=== PATIENT | female | born 1960 | race Caucasian/White ===

== ENCOUNTER 2016-08-06 13:57 | Emergency (ER) | payer OTHER ==
[~2016-08-06] VITALS: Ht 152.4 cm; Wt 46.9 kg
[~2016-08-06 13:57] MED LIST: ADDERALL XR 3030 MG PO; ADDERALL20 MG PO; ALPRAZOLAM0.5 MG PO; AMBIEN10 MG PO; ANTI-ANXIETY; ASCORBIC ACID500 M3 PO; ASPIR 8181 M1 PO; ASPIR-LOW81 MG PO; ASPIRIN325 MG PO; AVENTYL,PAMELOR25 MG PO; Aspirin E.C. PO; B COMPLETE1 EACH PO; BACTRIM,SEPT1 TABLET PO; BUSPAR PO; BUSPAR10 MG PO; BUSPAR15 MG PO; BUSPAR5 MG PO; BUSPIRONE HCL10 MG PO; BUSPIRONE HCL15 MG PO; CALCIUM 500 MG1 EACH PO; CEFPODOXIME PR100 MG PO; CEROVITE ADVAN1 EACH PO; CIPRO250 MG PO; CIPROFLOXACIN500 M1 PO; CLINDAMYCIN HC300 MG PO; CLOPIDOGREL75 MG PO; COLACE100 MG PO; CYANOCOBALAM1000 MCG PO; Chronulac,Cephulac,E PO; DAILY VALUE1 EACH PO; DAILY VITE1 EAC1 PO; DECADRON2 MG PO; DEPAKOTE500 MG PO; DESYREL 150 MG150 MG PO; DESYREL100 MG PO; DITROPAN XL10 MG PO; DOCUSATE SODIU100 MG PO; DULOXETINE HCL60 MG PO; EFFEXOR XR150 MG PO; EFFEXOR XR75 MG PO; EFFEXOR75 MG PO; ENDOCET 10-3251 EACH PO; ENDOCET 5-3251 EACH PO; FAMOTIDINE20 MG PO; FISH OIL 1,0001 EAC7 PO; FLONASE16 G1 BOTH NARES; HYDROCODON-ACE1 EAC7 PO; HYDROXYZINE HCL50 MG PO; KLONOPIN0.5 M1; LEVETIRACETAM500 MG PO; LISINOPRIL5 MG PO; LO-DOSE ASPIRIN81 M1 PO; LOPRESSOR25 MG PO; LOVENOX40 MG/0.4 SC; MAG-AL PLUS SUS30 ML PO; MAXALT10 MG PO; MEDROL32 MG PO; METOPROLOL PO; NORTRIPTYLINE H25 MG PO; ONDANSETRON ODT4 MG PO; ONDANSETRON4 MG/2 ML PO; OXYBUTYNIN CHLO10 MG PO; OXYCODONE HCL5 MG PO; OXYCODONE-APAP1 EACH PO; PANTOPRAZOLE SO40 MG PO; PAXIL20 MG PO; PAXIL30 MG PO; PEN-VEE K,VEET500 MG PO; PERCOCET 10/1 TABLET PO; PERCOCET 5/31 TABLET PO; PILOCARPINE HCL5 MG PO; PLAVIX75 MG PO; PRAVACHOL40 MG PO; PRAVASTATIN SOD40 MG PO; PRAVASTATIN SOD80 MG PO; PROMETHAZINE HC25 M1 PO; RESTORIL30 MG PO; SAM-E400 MG PO; SENNA PLUS TAB1 EACH PO; TEMAZEPAM30 MG PO; TOPAMAX25 MG PO; TOPIRAMATE25 MG PO; TORADOL10 MG PO; TRAMADOL HCL50 MG PO; TRAZODONE HCL100 MG PO; TRAZODONE HCL150 MG PO; TRAZODONE HCL50 MG PO; TYLENOL REGULA325 MG PO; Tums,OsCal PO; Tylenol Regular Stre PO; ULTRAM50 MG PO; VENLAFAXINE HCL75 M3 PO; VENLAFAXINE225 MG PO; VITAMIN D31000 UNIT PO; WELLBUTRIN SR100 MG PO; WELLBUTRIN XL150 MG PO; WELLBUTRIN100 MG PO; XANAX0.25 MG PO; Xanax PO; ZOFRAN4 MG PO; ZOLOFT100 MG PO; ZOLPIDEM TARTRA10 MG PO
[2016-08-06 16:58] LABS: EOSINOPHIL COUNT 0.1 K/uL (0-0.3); HEMATOCRIT 40.1 % (36.0-46.0); IMMATURE GRANULOCYTE (%) 0.2 % (0.0-0.7); IMMATURE GRANULOCYTE COUNT 0.1 K/uL; LYMPHOCYTE COUNT 1.9 K/uL (1.0-2.8); MCH 30.8 PG (29.0-34.0); MCHC 33.2 G/DL (30.0-36.0); MCV 92.8 FL (83-99); MONOCYTE (%) 9.1 % (3-12); MONOCYTE COUNT 0.6 K/uL (0-0.8); NEUTROPHIL (%) 56.8 % (45-76); NEUTROPHIL COUNT 3.5 K/uL (1.8-6.4); PLATELET COUNT 298 K/uL (156-360); RBC DIS.WIDTH-CV 13.5 % (11.8-14.6); RBC DIS.WIDTH-SD 44.5 % (39-53); RED BLOOD COUNT 4.32 M/uL (3.80-5.20); WHITE BLOOD COUNT 6.1 K/uL (4.1-10.2)
[2016-08-06 17:09] LABS: CHLORIDE 107 mEq/L (99-109); POTASSIUM 4.8 mEq/L (3.7-5.4); SODIUM 141 mEq/L (136-147)
[2016-08-06 17:11] LABS: GLUCOSE 89 mg/dL (70-99)
[2016-08-06 17:13] LABS: ANION GAP 10 MEQ/L (2-14); TOTAL BILIRUBIN 0.3 mg/dL (0.0-1.0)
[2016-08-06 17:15] LABS: ALKALINE PHOSPHATASE 94 IU/L (3-129); GFR ESTIMATE (CALCULATED) > 59 mL/min/
[2016-08-06 17:16] LABS: UREA NITROGEN (BUN) 23 mg/dL (9-23)
[2016-08-06 17:18] LABS: TROP-I INTERPRETATION NEGATIVE; TROPONIN-I < 0.01 ng/mL (0.0-0.30)
[2016-08-06 21:34] VITALS: BP 110/69
[2016-08-07] MEDS ORDERED: ZOCOR20 MG PO (17:35)
== END 2016-08-06 21:37 | disposition home or self-care (01) ==
LOC: EME 13:57
PROVIDERS: Emergency Medicine
DX: R53.1 Weakness (principal); Z91.81 History of falling; Z98.2 Presence of cerebrospinal fluid drainage device; F32.9 Major depressive disorder, single episode, unspecified; I69.359 Hemiplegia and hemiparesis following cerebral infarction affecting unspecified side; I10 Essential (primary) hypertension; E78.5 Hyperlipidemia, unspecified; K21.9 Gastro-esophageal reflux disease without esophagitis; Z91.041 Radiographic dye allergy status; J30.2 Other seasonal allergic rhinitis; Z87.891 Personal history of nicotine dependence
CPT/HCPCS: 70450; 71010; 80053; 84484; 85025; 93005; 99281; 99284

== ENCOUNTER 2016-08-07 15:48 | Inpatient (IN) | payer OTHER ==
[~2016-08-07] VITALS: Ht 152.4 cm; Wt 42.8 kg
[2016-08-07 17:08] LABS: MCH 30.7 PG (29.0-34.0); MCHC 33.5 G/DL (30.0-36.0); MCV 91.5 FL (83-99); PLATELET COUNT 272 K/uL (156-360); RBC DIS.WIDTH-CV 13.4 % (11.8-14.6); RBC DIS.WIDTH-SD 43.4 % (39-53); RED BLOOD COUNT 4.37 M/uL (3.80-5.20); WHITE BLOOD COUNT 5.1 K/uL (4.1-10.2)
[2016-08-07 17:18] LABS: CHLORIDE 107 mEq/L (99-109); POTASSIUM 4.5 mEq/L (3.7-5.4); SODIUM 141 mEq/L (136-147)
[2016-08-07 17:20] LABS: GLUCOSE 100 mg/dL (70-99)
[2016-08-07 17:21] LABS: ANION GAP 11 MEQ/L (2-14)
[2016-08-07 17:23] LABS: SERUM ETHYL ALCOHOL < 10 mg/dL
[2016-08-07 17:24] LABS: GFR ESTIMATE (CALCULATED) > 59 mL/min/
[2016-08-07 17:25] LABS: UREA NITROGEN (BUN) 25 mg/dL (9-23)
[2016-08-07 17:27] LABS: SALICYLATE < 5.0 MG/DL (15-30)
[2016-08-07] MEDS ORDERED: ZOCOR20 MG PO (17:35)
[2016-08-07 20:40] VITALS: BP 123/86
[2016-08-08 07:48] VITALS: BP 124/67
[2016-08-08 15:28] VITALS: BP 122/75
[2016-08-09 08:01] VITALS: BP 124/67
[2016-08-09] MEDS ORDERED: WELLBUTRIN100 MG PO (09:24)
== END 2016-08-09 11:24 | disposition home or self-care (01) | DRG 881 ==
LOC: EME 15:48 → EDOF 17:08 → 1WEST 17:08
PROVIDERS: Emergency Medicine
DX: F43.21 Adjustment disorder with depressed mood (principal); F33.9 Major depressive disorder, recurrent, unspecified; G91.1 Obstructive hydrocephalus; I69.354 Hemiplegia and hemiparesis following cerebral infarction affecting left non-dominant side; Q85.01 Neurofibromatosis, type 1; N31.9 Neuromuscular dysfunction of bladder, unspecified; F43.10 Post-traumatic stress disorder, unspecified; F41.0 Panic disorder [episodic paroxysmal anxiety]
CPT/HCPCS: 70450; 71010; 80048; 80053; 84484; 85025; 85027; 90837; 93005; 97150 GO; 97166 GO; 99281; 99284; 99285; G0480

== ENCOUNTER 2016-09-02 17:17 | Inpatient (IN) | payer OTHER ==
[~2016-09-02] VITALS: Ht 152.4 cm; Wt 47.0 kg
[~2016-09-02 17:17] MED LIST changes: +ZOCOR20 MG PO
[2016-09-02 17:34] LABS: POINT-OF-CARE METER ID UU14100415
[2016-09-02 19:39] LABS: ADD MIUA? YES; BILIRUBIN NEGATIVE; BLOOD NEGATIVE; COLOR YELLOW ((YELLOW)); GLUCOSE (STRIP) NEGATIVE; KETONES NEGATIVE; LEUKOCYTES LARGE; NITRITE POSITIVE; PROTEIN (STRIP) NEGATIVE; SPECIFIC GRAVITY 1.009 (1.000-1.030); UROBILINOGEN 0.2 MG/DL (0.2-1.0)
[2016-09-02 20:00] LABS: HEMATOCRIT 37.5 % (36.0-46.0); MCH 30.7 PG (29.0-34.0); MCHC 33.9 G/DL (30.0-36.0); MCV 90.6 FL (83-99); MEAN PLAT.VOLUME 9.6 uM^3 (9.5-12.4); PLATELET COUNT 239 K/uL (156-360); RBC DIS.WIDTH-CV 13.3 % (11.8-14.6); RBC DIS.WIDTH-SD 42.9 % (39-53); RED BLOOD COUNT 4.14 M/uL (3.80-5.20); WHITE BLOOD COUNT 9.2 K/uL (4.1-10.2)
[2016-09-02 20:02] LABS: CHLORIDE 110 mEq/L (99-109); POTASSIUM 4.5 mEq/L (3.7-5.4); SODIUM 145 mEq/L (136-147)
[2016-09-02 20:03] LABS: GLUCOSE 105 mg/dL (70-99)
[2016-09-02 20:05] LABS: ANION GAP 11 MEQ/L (2-14)
[2016-09-02 20:06] LABS: BACTERIA 2+ /HPF; EPITHELIAL CELLS RARE /HPF; MUCUS NONE SEEN /LPF; RED BLOOD CELLS 0-5 /HPF (0-5); UCUL ADDED? NO; WHITE BLOOD CELLS 0-5 /HPF (0-5); WHITE BLOOD CELLS CLUMP RARE /HPF (0-5)
[2016-09-02 20:07] LABS: GFR ESTIMATE (CALCULATED) > 59 mL/min/
[2016-09-02 20:08] LABS: UREA NITROGEN (BUN) 10 mg/dL (9-23)
[2016-09-02 20:10] LABS: TROP-I INTERPRETATION NEGATIVE; TROPONIN-I < 0.01 ng/mL (0.0-0.30)
[2016-09-03 03:36] VITALS: BP 142/90
[2016-09-03 08:42] VITALS: BP 128/87
[2016-09-03] MEDS ORDERED: ALPRAZOLAM0.25 M2 PO (11:53)
[2016-09-03] MEDS ORDERED: NORTRIPTYLINE H25 MG PO (11:54)
[2016-09-03] MEDS ORDERED: CLOPIDOGREL75 MG PO (11:54)
[2016-09-03] MEDS ORDERED: ULTRAM50 MG PO (11:54)
[2016-09-03] MEDS ORDERED: PAROXETINE HCL30 MG PO (11:55)
[2016-09-03] MEDS ORDERED: BUPROPION HCL100 MG PO (11:55)
[2016-09-03] MEDS ORDERED: BUSPAR15 MG PO (11:56)
[2016-09-03] MEDS ORDERED: LOPRESSOR25 MG PO (11:56)
[2016-09-03] MEDS ORDERED: TRAZODONE HCL150 MG PO (11:56)
[2016-09-03] MEDS ORDERED: SIMVASTATIN20 MG PO (11:57)
[2016-09-03] MEDS ORDERED: FLONASE16 G1 BOTH NARES (11:57)
[2016-09-03] MEDS ORDERED: ONE DAILY TABL1 EAC1 PO (11:58)
[2016-09-03] MEDS ORDERED: B COMPLETE1 EACH PO (11:58)
[2016-09-03 12:25] VITALS: BP 154/86
[2016-09-03 16:59] VITALS: BP 130/82
[2016-09-03 20:01] VITALS: BP 112/67
[2016-09-03 23:50] VITALS: BP 116/72
[2016-09-04 08:49] VITALS: BP 119/86
[2016-09-04 16:00] VITALS: BP 127/84
[2016-09-04 19:58] VITALS: BP 117/62
[2016-09-04 23:59] VITALS: BP 112/75
[2016-09-05 03:15] VITALS: BP 121/62
[2016-09-05 10:02] VITALS: BP 110/72
[2016-09-05 13:34] VITALS: BP 131/80
[2016-09-05 19:02] VITALS: BP 118/77
[2016-09-06] VITALS: BP 130/82
[2016-09-06 08:29] VITALS: BP 128/79
[2016-09-06 16:26] VITALS: BP 126/77
[2016-09-07] VITALS: BP 123/77
[2016-09-07 09:05] VITALS: BP 110/78
[2016-09-07] MEDS ORDERED: DICYCLOMINE HCL10 MG PO (14:12)
[2016-09-07] MEDS ORDERED: PANTOPRAZOLE SO40 MG PO (14:12)
[2016-09-07] MEDS ORDERED: LAMICTAL25 MG PO (14:12)
[2016-09-07 15:00] VITALS: BP 118/68
[2016-09-07 23:21] VITALS: BP 118/69
[2016-09-08 07:30] VITALS: BP 123/65
[2016-09-08 12:00] VITALS: BP 105/67
[2016-09-08 15:45] VITALS: BP 112/71
[2016-09-08 22:30] VITALS: BP 118/73
[2016-09-09 08:10] VITALS: BP 138/73
[2016-09-09 15:35] VITALS: BP 123/76
[2016-09-09 23:12] VITALS: BP 139/88
[2016-09-10 07:25] LABS: ANION GAP 10 MEQ/L (2-14); CHLORIDE 104 MEQ/L (99-109); GFR ESTIMATE (CALCULATED) > 59 mL/min/; GLUCOSE 88 mg/dL (70-99); POTASSIUM 4.6 MEQ/L (3.7-5.4); SAMPLE HEMOLYSIS CHECK 0; SAMPLE ICTERIC CHECK 0; SAMPLE LIPEMIA CHECK 0; SODIUM 142 MEQ/L (136-147); UREA NITROGEN (BUN) 13 mg/dL (9-23)
[2016-09-10 07:45] VITALS: BP 113/78
[2016-09-10 08:26] LABS: ABS NEUTROPHIL COUNT 2.45; ANISOCYTOSIS OCC; EOSINOPHIL ABS CT 0.46; HEMATOCRIT 37.4 % (36.0-46.0); MCH 29.6 PG (29.0-34.0); MCHC 31.6 G/DL (30.0-36.0); MEAN PLAT.VOLUME 10.4 uM^3 (9.5-12.4); OVALOCYTES OCC; PLAT.SUFFICIENCY ADEQUATE; PLATELET COUNT 271 K/uL (156-360); RBC DIS.WIDTH-SD 48.1 % (39-53); RED BLOOD COUNT 3.98 M/uL (3.80-5.20); USER ID MCB
[2016-09-10 08:27] LABS: DELETE MACHINE DIFF? YES; WHITE BLOOD COUNT 5.1 K/uL (4.1-10.2)
[2016-09-10] MEDS ORDERED: LOVENOX40 MG/0.4 SC (13:45)
[2016-09-10] MEDS ORDERED: ALPRAZOLAM0.25 M2 PO (13:47)
[2016-09-10] MEDS ORDERED: ULTRAM50 MG PO (13:47)
[2016-09-10] MEDS ORDERED: ZOLPIDEM TARTRAT5 MG PO (13:47)
[2016-09-10 15:02] VITALS: BP 120/90
== END 2016-09-10 18:52 | DRG 101 ==
LOC: EME 17:17 → EDOF 23:20 → 5EAST 23:20 → EDOF 09-03 03:09 → 5EAST 09-03 03:45
PROVIDERS: Emergency Medicine; Family Medicine
DX: G40.909 Epilepsy, unspecified, not intractable, without status epilepticus (principal); G91.2 (Idiopathic) normal pressure hydrocephalus; I69.354 Hemiplegia and hemiparesis following cerebral infarction affecting left non-dominant side; Z75.1 Person awaiting admission to adequate facility elsewhere; I10 Essential (primary) hypertension; E78.5 Hyperlipidemia, unspecified; F41.1 Generalized anxiety disorder; F32.9 Major depressive disorder, single episode, unspecified; F60.9 Personality disorder, unspecified; N31.9 Neuromuscular dysfunction of bladder, unspecified; N39.41 Urge incontinence; R33.9 Retention of urine, unspecified; R15.9 Full incontinence of feces; J30.2 Other seasonal allergic rhinitis; Z98.2 Presence of cerebrospinal fluid drainage device; Z91.81 History of falling; Z79.02 Long term (current) use of antithrombotics/antiplatelets; Z79.82 Long term (current) use of aspirin; Z91.041 Radiographic dye allergy status
CPT/HCPCS: 70250; 70450; 71010; 72040; 73130; 74000; 76770; 80048; 81003; 82948; 83605; 84484; 85025; 85027; 87040; 93005; 94799; 97530 GO; 97530 GP; 99281; 99285; J0692; J0696; J1650; J2060; J7042; J7050

== ENCOUNTER 2016-10-02 19:46 | Emergency (ER) | payer OTHER ==
[~2016-10-02] VITALS: Ht 152.4 cm; Wt 44.1 kg
[~2016-10-02 19:46] MED LIST changes: +ALPRAZOLAM0.25 M2 PO; +BUPROPION HCL100 MG PO; +DICYCLOMINE HCL10 MG PO; +LAMICTAL25 MG PO; +ONE DAILY TABL1 EAC1 PO; +PAROXETINE HCL30 MG PO; +SIMVASTATIN20 MG PO; +ZOLPIDEM TARTRAT5 MG PO
[2016-10-02 21:01] LABS: BASOPHIL COUNT 0.1 K/uL (0-0.1); EOSINOPHIL (%) 3.4 % (0-5); EOSINOPHIL COUNT 0.2 K/uL (0-0.3); HEMATOCRIT 36.4 % (36.0-46.0); IMMATURE GRANULOCYTE (%) 0.2 % (0.0-0.7); INSTRUMENT ABS NEUTROPHIL CT 2.9 K/uL; MCH 30.1 PG (29.0-34.0); MCHC 32.4 G/DL (30.0-36.0); MCV 92.9 FL (83-99); MEAN PLAT.VOLUME 9.9 uM^3 (9.5-12.4); MONOCYTE (%) 10.9 % (3-12); MONOCYTE COUNT 0.6 K/uL (0-0.8); NEUTROPHIL (%) 50.1 % (45-76); NEUTROPHIL COUNT 2.9 K/uL (1.8-6.4); PLATELET COUNT 246 K/uL (156-360); RBC DIS.WIDTH-CV 13.2 % (11.8-14.6); RBC DIS.WIDTH-SD 45.1 % (39-53); RED BLOOD COUNT 3.92 M/uL (3.80-5.20); WHITE BLOOD COUNT 5.9 K/uL (4.1-10.2)
[2016-10-02 21:12] LABS: CHLORIDE 107 mEq/L (99-109)
[2016-10-02 21:13] LABS: MAGNESIUM 2.3 mg/dL (1.3-2.7); POTASSIUM 4.4 mEq/L (3.7-5.4); SODIUM 142 mEq/L (136-147)
[2016-10-02 21:13] LABS: INTER. NORMALIZED RATIO 1.1; PROTHROMBIN TIME 11.7 (9.2-11.2); PTT 25.5 (25-32)
[2016-10-02 21:14] LABS: GLUCOSE 137 mg/dL (70-99)
[2016-10-02 21:16] LABS: ANION GAP 7 MEQ/L (2-14)
[2016-10-02 21:18] LABS: GFR ESTIMATE (CALCULATED) > 59 mL/min/
[2016-10-02 21:19] LABS: UREA NITROGEN (BUN) 18 mg/dL (9-23)
[2016-10-02 21:22] LABS: TROP-I INTERPRETATION NEGATIVE; TROPONIN-I < 0.01 ng/mL (0.0-0.30)
[2016-10-02 21:32] LABS: ADD MIUA? NO; BILIRUBIN NEGATIVE; BLOOD NEGATIVE; COLOR STRAW ((YELLOW)); GLUCOSE (STRIP) NEGATIVE; KETONES NEGATIVE; LEUKOCYTES NEGATIVE; NITRITE NEGATIVE; PROTEIN (STRIP) NEGATIVE; SPECIFIC GRAVITY 1.005 (1.000-1.030); UCUL ADDED? NO; UROBILINOGEN 0.2 MG/DL (0.2-1.0)
[2016-10-02 22:37] LABS: AMPHETAMINE NEGATIVE (500 ng/mL); BARBITURATES NEGATIVE (200 ng/mL); BENZODIAZEPINES PRESUMPTIVE POSITIVE (150 ng/mL); COCAINE NEGATIVE (150 ng/mL); INTERNAL CONTROLS VALID? YES; METHADONE NEGATIVE (200 ng/mL); METHAMPHETAMINE NEGATIVE (500 ng/mL); OPIATES (MORPHINE) NEGATIVE (100 ng/mL); OXYCODONE NEGATIVE (100 ng/mL); PHENCYCLIDINE NEGATIVE (25 ng/mL); PROPOXYPHENE NEGATIVE (300 ng/mL); THC CANNABINOIDS NEGATIVE (50 ng/mL); TRICYCLIC ANTIDEPRESSANTS PRESUMPTIVE POSITIVE (300 ng/mL)
[2016-10-02 22:38] LABS: ADD MEDTOX COMMENT Y
[2016-10-02 22:41] VITALS: BP 123/81
[2016-10-02 23:19] LABS: BENZODIAZEPINES, URINE SCREEN POSITIVE (200 ng/mL)
== END 2016-10-02 22:42 | disposition home or self-care (01) ==
LOC: EME → EDBD 19:46 → EME 19:46
PROVIDERS: Emergency Medicine
DX: R53.1 Weakness (principal); Z98.2 Presence of cerebrospinal fluid drainage device; R51 Headache; F32.9 Major depressive disorder, single episode, unspecified; Z86.73 Personal history of transient ischemic attack (TIA), and cerebral infarction without residual deficits; E78.5 Hyperlipidemia, unspecified; I10 Essential (primary) hypertension; K21.9 Gastro-esophageal reflux disease without esophagitis; Z87.891 Personal history of nicotine dependence
CPT/HCPCS: 70450; 71010; 80048; 81003; 82140; 83735; 84484; 84999; 85025; 85610; 85730; 87040; 93005; 99281; 99285

== ENCOUNTER 2016-12-11 18:59 | Observation (INO) | payer OTHER ==
[~2016-12-11] VITALS: Ht 152.4 cm; Wt 49.3 kg
[2016-12-11 20:08] LABS: HEMATOCRIT 39.9 % (36.0-46.0); MCH 30.2 PG (29.0-34.0); MCHC 33.3 G/DL (30.0-36.0); MCV 90.5 FL (83-99); MEAN PLAT.VOLUME 9.7 uM^3 (9.5-12.4); PLATELET COUNT 295 K/uL (156-360); RBC DIS.WIDTH-CV 13.2 % (11.8-14.6); RBC DIS.WIDTH-SD 43.3 % (39-53); RED BLOOD COUNT 4.41 M/uL (3.80-5.20); WHITE BLOOD COUNT 8.8 K/uL (4.1-10.2)
[2016-12-11 20:22] LABS: CHLORIDE 100 mEq/L (99-109); POTASSIUM 4.7 mEq/L (3.7-5.4)
[2016-12-11 20:23] LABS: SODIUM 137 mEq/L (136-147)
[2016-12-11 20:24] LABS: GLUCOSE 99 mg/dL (70-99)
[2016-12-11 20:26] LABS: ANION GAP 11 MEQ/L (2-14)
[2016-12-11 20:28] LABS: GFR ESTIMATE (CALCULATED) > 59 mL/min/
[2016-12-11 20:29] LABS: UREA NITROGEN (BUN) 12 mg/dL (9-23)
[2016-12-11 20:36] LABS: INTER. NORMALIZED RATIO 1.1; PROTHROMBIN TIME 11.4 (9.2-11.2); PTT 23.6 (25-32)
[2016-12-12] MEDS ORDERED: KEPPRA750 MG PO (00:04)
[2016-12-12] MEDS ORDERED: BUPROPION HCL100 MG PO (00:05)
[2016-12-12] MEDS ORDERED: PRAVASTATIN SOD40 MG PO (00:05)
[2016-12-12 01:35] VITALS: BP 128/88
[2016-12-12 03:33] LABS: METH RESISTANT S AUREUS PCR NEGATIVE (NEGATIVE)
[2016-12-12 03:35] LABS: PROBE CHECK PASS; SPECIMEN PROCESSING CONTROL PASS
[2016-12-12 05:54] LABS: HEMATOCRIT 35.7 % (36.0-46.0); MCH 31.2 PG (29.0-34.0); MCHC 34.7 G/DL (30.0-36.0); MCV 89.9 FL (83-99); RBC DIS.WIDTH-CV 13.2 % (11.8-14.6); RBC DIS.WIDTH-SD 43.1 % (39-53); RED BLOOD COUNT 3.97 M/uL (3.80-5.20); WHITE BLOOD COUNT 7.8 K/uL (4.1-10.2)
[2016-12-12 06:42] LABS: ALKALINE PHOSPHATASE 90 IU/L (3-129); ANION GAP 11 MEQ/L (2-14); CHLORIDE 101 MEQ/L (99-109); GFR ESTIMATE (CALCULATED) > 59 mL/min/; GLUCOSE 95 mg/dL (70-99); POTASSIUM 4.5 MEQ/L (3.7-5.4); SAMPLE HEMOLYSIS CHECK 0; SAMPLE ICTERIC CHECK 0; SAMPLE LIPEMIA CHECK 0; SODIUM 137 MEQ/L (136-147); TOTAL BILIRUBIN 0.4 MG/DL (0.0-1.0); UREA NITROGEN (BUN) 13 mg/dL (9-23)
[2016-12-12 06:43] LABS: MEAN PLAT.VOLUME 10.3 uM^3 (9.5-12.4); PLAT.SUFFICIENCY ADEQUATE; PLATELET CLUMPS PRESENT - PLATELET COUNT APPEARS ADQ.; PLATELET COUNT 263 K/uL (156-360)
[2016-12-12 09:10] VITALS: BP 102/68
[2016-12-12 11:57] VITALS: BP 107/67
[2016-12-12 16:14] VITALS: BP 105/65
[2016-12-12 20:00] VITALS: BP 100/64
[2016-12-13 04:06] VITALS: BP 88/53
[2016-12-13 05:00] VITALS: BP 96/54
[2016-12-13 06:15] LABS: MCH 30.6 PG (29.0-34.0); MCHC 33.2 G/DL (30.0-36.0); MCV 92.1 FL (83-99); MEAN PLAT.VOLUME 9.6 uM^3 (9.5-12.4); PLATELET COUNT 224 K/uL (156-360); RBC DIS.WIDTH-CV 13.2 % (11.8-14.6)
[2016-12-13 06:17] LABS: RED BLOOD COUNT 3.04 M/uL (3.80-5.20); WHITE BLOOD COUNT 4.2 K/uL (4.1-10.2)
[2016-12-13 06:46] LABS: ANION GAP 5 MEQ/L (2-14); CHLORIDE 107 MEQ/L (99-109); GFR ESTIMATE (CALCULATED) > 59 mL/min/; GLUCOSE 103 mg/dL (70-99); POTASSIUM 4.3 MEQ/L (3.7-5.4); SAMPLE HEMOLYSIS CHECK 0; SAMPLE ICTERIC CHECK 0; SAMPLE LIPEMIA CHECK 0; SODIUM 140 MEQ/L (136-147); UREA NITROGEN (BUN) 14 mg/dL (9-23)
[2016-12-13 08:00] VITALS: BP 104/68
[2016-12-13 16:00] VITALS: BP 99/60
[2016-12-13 19:00] VITALS: BP 101/59
[2016-12-13 23:53] VITALS: BP 99/55
[2016-12-14 06:46] LABS: HEMATOCRIT 30.7 % (36.0-46.0); MCH 30.7 PG (29.0-34.0); MCHC 33.6 G/DL (30.0-36.0); MCV 91.6 FL (83-99); MEAN PLAT.VOLUME 10.1 uM^3 (9.5-12.4); PLATELET COUNT 271 K/uL (156-360); RBC DIS.WIDTH-CV 13.6 % (11.8-14.6); RBC DIS.WIDTH-SD 45.7 % (39-53); RED BLOOD COUNT 3.35 M/uL (3.80-5.20)
[2016-12-14 06:51] LABS: WHITE BLOOD COUNT 5.6 K/uL (4.1-10.2)
[2016-12-14 06:53] LABS: ALKALINE PHOSPHATASE 76 IU/L (3-129); ANION GAP 10 MEQ/L (2-14); CHLORIDE 104 MEQ/L (99-109); GFR ESTIMATE (CALCULATED) > 59 mL/min/; GLUCOSE 99 mg/dL (70-99); POTASSIUM 4.2 MEQ/L (3.7-5.4); SAMPLE HEMOLYSIS CHECK 0; SAMPLE ICTERIC CHECK 0; SAMPLE LIPEMIA CHECK 0; SODIUM 138 MEQ/L (136-147); TOTAL BILIRUBIN 0.3 MG/DL (0.0-1.0); UREA NITROGEN (BUN) 12 mg/dL (9-23)
[2016-12-14 16:10] VITALS: BP 101/56
[2016-12-14] MEDS ORDERED: NIFEREX-150,FE150 MG PO (17:35)
[2016-12-14] MEDS ORDERED: MORPHINE SULFAT15 M1 PO (17:35)
== END 2016-12-14 19:07 | disposition home health service (06) ==
LOC: EME → EDBD 18:59 → EDOF 12-12 00:27 → EDLOC 12-12 00:27 → EDOF 12-12 00:27 → 5WEST 12-12 00:27
PROVIDERS: Emergency Medicine; Internal Medicine
DX: S50.02XA Contusion of left elbow, initial encounter (principal); W19.XXXA Unspecified fall, initial encounter; D50.0 Iron deficiency anemia secondary to blood loss (chronic); R26.2 Difficulty in walking, not elsewhere classified; I69.354 Hemiplegia and hemiparesis following cerebral infarction affecting left non-dominant side; N31.9 Neuromuscular dysfunction of bladder, unspecified; N39.498 Other specified urinary incontinence; I10 Essential (primary) hypertension; R15.9 Full incontinence of feces; F32.9 Major depressive disorder, single episode, unspecified; F41.1 Generalized anxiety disorder; F60.9 Personality disorder, unspecified; F91.9 Conduct disorder, unspecified
CPT/HCPCS: 70450; 70551; 73070; 74000; 80048; 80053; 85027; 85610; 85730; 87641; 99281; 99285; G0378; J2270; J2405; J3010; J7042

== ENCOUNTER 2016-12-18 21:22 | Emergency (ER) | payer OTHER ==
[~2016-12-18] VITALS: Ht 152.4 cm; Wt 47.7 kg
[~2016-12-18 21:22] MED LIST changes: +KEPPRA750 MG PO; +MORPHINE SULFAT15 M1 PO; +NIFEREX-150,FE150 MG PO
[2016-12-19 01:06] LABS: HEMATOCRIT 33.3 % (36.0-46.0); MCH 30.2 PG (29.0-34.0); MCHC 32.7 G/DL (30.0-36.0); MCV 92.2 FL (83-99); MEAN PLAT.VOLUME 9.6 uM^3 (9.5-12.4); PLATELET COUNT 300 K/uL (156-360); RBC DIS.WIDTH-CV 13.6 % (11.8-14.6); RBC DIS.WIDTH-SD 46.6 % (39-53); RED BLOOD COUNT 3.61 M/uL (3.80-5.20); WHITE BLOOD COUNT 8.1 K/uL (4.1-10.2)
[2016-12-19 01:14] LABS: CHLORIDE 103 mEq/L (99-109); POTASSIUM 4.7 mEq/L (3.7-5.4); SODIUM 139 mEq/L (136-147)
[2016-12-19 01:16] LABS: GLUCOSE 106 mg/dL (70-99)
[2016-12-19 01:17] LABS: ANION GAP 11 MEQ/L (2-14)
[2016-12-19 01:20] LABS: GFR ESTIMATE (CALCULATED) > 59 mL/min/; UREA NITROGEN (BUN) 18 mg/dL (9-23)
[2016-12-19 01:22] LABS: CREATINE KINASE 47 IU/L (1-294)
[2016-12-19] MEDS ORDERED: KEFLEX500 MG PO (01:22)
[2016-12-19 03:50] VITALS: BP 96/47
== END 2016-12-19 03:53 | disposition home or self-care (01) ==
LOC: EME 21:22 → EXP 21:22
PROVIDERS: Physician Assistant
DX: L03.114 Cellulitis of left upper limb (principal); S50.12XA Contusion of left forearm, initial encounter; S40.812A Abrasion of left upper arm, initial encounter; W18.30XA Fall on same level, unspecified, initial encounter; Y92.002 Bathroom of unspecified non-institutional (private) residence as the place of occurrence of the external cause; I10 Essential (primary) hypertension; E78.5 Hyperlipidemia, unspecified; Z79.02 Long term (current) use of antithrombotics/antiplatelets; Z86.73 Personal history of transient ischemic attack (TIA), and cerebral infarction without residual deficits; Z98.2 Presence of cerebrospinal fluid drainage device; Z87.891 Personal history of nicotine dependence
CPT/HCPCS: 73060; 73090; 80048; 82550; 83605; 85027; 93971; 99281; 99284; J1885

== ENCOUNTER 2016-12-19 12:43 | Emergency (ER) | payer OTHER ==
[~2016-12-19] VITALS: Ht 154.9 cm; Wt 51.3 kg
[~2016-12-19 12:43] MED LIST changes: +KEFLEX500 MG PO
[2016-12-19 13:50] LABS: CHLORIDE 105 mEq/L (99-109); POTASSIUM 4.4 mEq/L (3.7-5.4); SODIUM 139 mEq/L (136-147)
[2016-12-19 13:51] LABS: EOSINOPHIL (%) 0.1 % (0-5); HEMATOCRIT 31.6 % (36.0-46.0); IMM.PLATELET FRACTION 1.8 (1-7); IMMATURE GRANULOCYTE (%) 0.4 % (0.0-0.7); INSTRUMENT ABS NEUTROPHIL CT 5.3 K/uL; LYMPHOCYTE COUNT 0.8 K/uL (1.0-2.8); MCH 30.3 PG (29.0-34.0); MCHC 32.6 G/DL (30.0-36.0); MCV 92.9 FL (83-99); MEAN PLAT.VOLUME 9.9 uM^3 (9.5-12.4); MONOCYTE (%) 8.2 % (3-12); MONOCYTE COUNT 0.6 K/uL (0-0.8); NEUTROPHIL (%) 79.3 % (45-76); NEUTROPHIL COUNT 5.3 K/uL (1.8-6.4); PLATELET COUNT 311 K/uL (156-360); RBC DIS.WIDTH-CV 13.9 % (11.8-14.6); RBC DIS.WIDTH-SD 46.8 % (39-53); WHITE BLOOD COUNT 6.7 K/uL (4.1-10.2)
[2016-12-19 13:52] LABS: GLUCOSE 92 mg/dL (70-99)
[2016-12-19 13:53] LABS: ANION GAP 14 MEQ/L (2-14)
[2016-12-19 13:54] LABS: TOTAL BILIRUBIN 0.8 mg/dL (0.0-1.0)
[2016-12-19 13:55] LABS: ALKALINE PHOSPHATASE 240 IU/L (3-129)
[2016-12-19 13:56] LABS: GFR ESTIMATE (CALCULATED) > 59 mL/min/
[2016-12-19 13:57] LABS: UREA NITROGEN (BUN) 25 mg/dL (9-23)
[2016-12-19 13:59] LABS: CREATINE KINASE 83 IU/L (1-294); TOTAL CK 83 IU/L (1-294)
[2016-12-19 14:07] LABS: CK-MB 1.4 ng/mL (0.0-4.9)
[2016-12-19 15:48] LABS: ADD MIUA? YES; BILIRUBIN NEGATIVE; BLOOD NEGATIVE; COLOR YELLOW ((YELLOW)); GLUCOSE (STRIP) NEGATIVE; KETONES 80; LEUKOCYTES TRACE; NITRITE NEGATIVE; PROTEIN (STRIP) NEGATIVE; SPECIFIC GRAVITY 1.025 (1.000-1.030); UROBILINOGEN 0.2 MG/DL (0.2-1.0)
[2016-12-19 15:53] LABS: BACTERIA RARE /HPF; EPITHELIAL CELLS RARE /HPF; MUCUS TRACE /LPF; RED BLOOD CELLS 0-5 /HPF (0-5); UCUL ADDED? NO
[2016-12-19 18:46] VITALS: BP 125/83
== END 2016-12-19 19:06 | disposition home or self-care (01) ==
LOC: EME 12:43
PROVIDERS: Emergency Medicine
PROC: 2W39X1Z Immobilization of Left Upper Extremity using Splint (ICD-10-PCS; principal; 2016-12-19)
DX: S50.12XA Contusion of left forearm, initial encounter (principal); W18.30XA Fall on same level, unspecified, initial encounter; Y92.002 Bathroom of unspecified non-institutional (private) residence as the place of occurrence of the external cause; I10 Essential (primary) hypertension; I69.352 Hemiplegia and hemiparesis following cerebral infarction affecting left dominant side; E78.5 Hyperlipidemia, unspecified; G40.909 Epilepsy, unspecified, not intractable, without status epilepticus; Z87.891 Personal history of nicotine dependence; Z79.02 Long term (current) use of antithrombotics/antiplatelets
CPT/HCPCS: 73201; 80053; 81003; 82550 91; 82553; 83605; 85025; 99281; 99285; J2060; J3010; J7030

== ENCOUNTER 2016-12-29 12:41 | Emergency (ER) | payer OTHER ==
[~2016-12-29] VITALS: Ht 152.4 cm; Wt 47.9 kg
[2016-12-29 17:23] VITALS: BP 133/91
== END 2016-12-29 17:23 | disposition home or self-care (01) ==
LOC: EME 12:41
PROC: 0H9DXZZ Drainage of Right Lower Arm Skin, External Approach (ICD-10-PCS; principal; 2016-12-29)
DX: S50.12XA Contusion of left forearm, initial encounter (principal); E78.5 Hyperlipidemia, unspecified; I10 Essential (primary) hypertension; G40.909 Epilepsy, unspecified, not intractable, without status epilepticus; W19.XXXA Unspecified fall, initial encounter; Z86.73 Personal history of transient ischemic attack (TIA), and cerebral infarction without residual deficits; Z98.2 Presence of cerebrospinal fluid drainage device; Z91.041 Radiographic dye allergy status; Z87.891 Personal history of nicotine dependence
CPT/HCPCS: 76882; 99281; 99284; J3010

== ENCOUNTER 2017-02-14 12:13 | Emergency (ER) | payer OTHER ==
[~2017-02-14] VITALS: Ht 152.4 cm; Wt 47.2 kg
[2017-02-14 14:00] VITALS: BP 102/59
[2017-02-14 14:04] LABS: HEMATOCRIT 37.2 % (36.0-46.0); MCH 28.7 PG (29.0-34.0); MCV 89.9 FL (83-99); MEAN PLAT.VOLUME 10.4 uM^3 (9.5-12.4); PLATELET COUNT 275 K/uL (156-360); RBC DIS.WIDTH-CV 14.6 % (11.8-14.6); RBC DIS.WIDTH-SD 48.5 % (39-53); RED BLOOD COUNT 4.14 M/uL (3.80-5.20)
[2017-02-14 14:17] LABS: CHLORIDE 109 mEq/L (99-109); SODIUM 141 mEq/L (136-147)
[2017-02-14 14:19] LABS: GLUCOSE 84 mg/dL (70-99)
[2017-02-14 14:21] LABS: ANION GAP 8 MEQ/L (2-14); TOTAL BILIRUBIN 0.2 mg/dL (0.0-1.0)
[2017-02-14 14:23] LABS: ALKALINE PHOSPHATASE 91 IU/L (3-129); GFR ESTIMATE (CALCULATED) > 59 mL/min/
[2017-02-14 14:24] LABS: UREA NITROGEN (BUN) 14 mg/dL (9-23)
== END 2017-02-14 15:55 | disposition home or self-care (01) ==
LOC: EME 12:13
PROVIDERS: Nurse Practitioner Family
DX: S50.312A Abrasion of left elbow, initial encounter (principal); R51 Headache; W01.0XXA Fall on same level from slipping, tripping and stumbling without subsequent striking against object, initial encounter; I69.354 Hemiplegia and hemiparesis following cerebral infarction affecting left non-dominant side; R29.6 Repeated falls; I10 Essential (primary) hypertension; E78.5 Hyperlipidemia, unspecified; Z79.02 Long term (current) use of antithrombotics/antiplatelets; Z98.2 Presence of cerebrospinal fluid drainage device; Z87.891 Personal history of nicotine dependence
CPT/HCPCS: 70450; 73080; 80053; 81003; 85027; 99281; 99282; J3010

== ENCOUNTER 2017-02-19 10:24 | Emergency (ER) | payer OTHER ==
[~2017-02-19] VITALS: Ht 152.4 cm; Wt 47.0 kg
[2017-02-19 11:21] LABS: CHLORIDE 107 mEq/L (99-109); POTASSIUM 4.4 mEq/L (3.7-5.4); SODIUM 139 mEq/L (136-147)
[2017-02-19 11:23] LABS: EOSINOPHIL (%) 0.4 % (0-5); GLUCOSE 88 mg/dL (70-99); HEMATOCRIT 33.5 % (36.0-46.0); IMMATURE GRANULOCYTE (%) 0.5 % (0.0-0.7); INSTRUMENT ABS NEUTROPHIL CT 5.7 K/uL; LYMPHOCYTE COUNT 1.4 K/uL (1.0-2.8); MCHC 32.5 G/DL (30.0-36.0); MCV 89.1 FL (83-99); MEAN PLAT.VOLUME 10.1 uM^3 (9.5-12.4); MONOCYTE (%) 11.8 % (3-12); NEUTROPHIL (%) 70.2 % (45-76); NEUTROPHIL COUNT 5.7 K/uL (1.8-6.4); PLATELET COUNT 270 K/uL (156-360); RBC DIS.WIDTH-CV 14.6 % (11.8-14.6); RBC DIS.WIDTH-SD 46.9 % (39-53); RED BLOOD COUNT 3.76 M/uL (3.80-5.20); WHITE BLOOD COUNT 8.1 K/uL (4.1-10.2)
[2017-02-19 11:24] LABS: ANION GAP 9 MEQ/L (2-14)
[2017-02-19 11:27] LABS: GFR ESTIMATE (CALCULATED) > 59 mL/min/
[2017-02-19 11:28] LABS: UREA NITROGEN (BUN) 15 mg/dL (9-23)
[2017-02-19 13:05] VITALS: BP 107/70
== END 2017-02-19 13:05 | disposition home or self-care (01) ==
LOC: EME 10:24
PROVIDERS: Emergency Medicine
PROC: 0HQ1XZZ Repair Face Skin, External Approach (ICD-10-PCS; principal; 2017-02-19)
DX: S01.81XA Laceration without foreign body of other part of head, initial encounter (principal); S20.219A Contusion of unspecified front wall of thorax, initial encounter; W01.10XA Fall on same level from slipping, tripping and stumbling with subsequent striking against unspecified object, initial encounter; Z91.81 History of falling; R29.6 Repeated falls; K21.9 Gastro-esophageal reflux disease without esophagitis; I10 Essential (primary) hypertension; E78.5 Hyperlipidemia, unspecified; Z98.2 Presence of cerebrospinal fluid drainage device; I69.954 Hemiplegia and hemiparesis following unspecified cerebrovascular disease affecting left non-dominant side
CPT/HCPCS: 70450; 71100; 71110; 80048; 85025; 93005; 99281; 99284

== ENCOUNTER 2017-03-09 09:49 | Emergency (ER) | payer OTHER ==
[~2017-03-09] VITALS: Ht 154.9 cm; Wt 45.5 kg
[2017-03-09 10:26] LABS: HEMATOCRIT 39.2 % (36.0-46.0); MCH 28.8 PG (29.0-34.0); MCHC 31.6 G/DL (30.0-36.0); MCV 91.2 FL (83-99); MEAN PLAT.VOLUME 9.9 uM^3 (9.5-12.4); PLATELET COUNT 381 K/uL (156-360); RBC DIS.WIDTH-CV 15.2 % (11.8-14.6); RBC DIS.WIDTH-SD 50.9 % (39-53); WHITE BLOOD COUNT 8.2 K/uL (4.1-10.2)
[2017-03-09 10:32] LABS: CHLORIDE 107 mEq/L (99-109); POTASSIUM 4.4 mEq/L (3.7-5.4); SODIUM 143 mEq/L (136-147)
[2017-03-09 10:35] LABS: GLUCOSE 77 mg/dL (70-99)
[2017-03-09 10:36] LABS: ANION GAP 12 MEQ/L (2-14)
[2017-03-09 10:37] LABS: TOTAL BILIRUBIN 0.5 mg/dL (0.0-1.0)
[2017-03-09 10:38] LABS: ALKALINE PHOSPHATASE 148 IU/L (3-129); GFR ESTIMATE (CALCULATED) > 59 mL/min/
[2017-03-09 10:39] LABS: UREA NITROGEN (BUN) 14 mg/dL (9-23)
[2017-03-09 11:05] LABS: ADD MIUA? YES; BILIRUBIN NEGATIVE; BLOOD NEGATIVE; COLOR YELLOW ((YELLOW)); GLUCOSE (STRIP) NEGATIVE; KETONES NEGATIVE; LEUKOCYTES TRACE; NITRITE NEGATIVE; PROTEIN (STRIP) 100; SPECIFIC GRAVITY 1.015 (1.000-1.030); UROBILINOGEN 0.2 MG/DL (0.2-1.0)
[2017-03-09 11:15] LABS: BACTERIA RARE /HPF; EPITHELIAL CELLS RARE /HPF; HYALINE CASTS 20-30 /LPF; MUCUS TRACE /LPF; RED BLOOD CELLS 40-50 /HPF (0-5); UCUL ADDED? YES; WHITE BLOOD CELLS 20-30 /HPF (0-5)
[2017-03-09] MEDS ORDERED: KEFLEX500 MG PO ×2 (12:53→22:38)
[2017-03-09 14:44] VITALS: BP 116/79
== END 2017-03-09 15:37 | disposition home or self-care (01) ==
LOC: EME → EDBD 09:49 → EME 15:37
PROVIDERS: Emergency Medicine
DX: N39.0 Urinary tract infection, site not specified (principal); R53.1 Weakness; W18.30XA Fall on same level, unspecified, initial encounter; Y93.01 Activity, walking, marching and hiking; I10 Essential (primary) hypertension; E78.5 Hyperlipidemia, unspecified; K21.9 Gastro-esophageal reflux disease without esophagitis; R56.9 Unspecified convulsions; Z98.2 Presence of cerebrospinal fluid drainage device; Z86.73 Personal history of transient ischemic attack (TIA), and cerebral infarction without residual deficits; Z87.891 Personal history of nicotine dependence
CPT/HCPCS: 80053; 81003; 85027; 87086 GA; 99281; 99284; J0696; J7030; J7050

== ENCOUNTER 2017-03-09 17:40 | Emergency (ER) | payer OTHER ==
[~2017-03-09] VITALS: Ht 152.4 cm; Wt 45.3 kg
[2017-03-09] MEDS ORDERED: KEFLEX500 MG PO (22:38)
[2017-03-09 23:25] VITALS: BP 131/86
== END 2017-03-09 23:25 | disposition home or self-care (01) ==
LOC: EME 17:40
DX: N39.0 Urinary tract infection, site not specified (principal); R41.82 Altered mental status, unspecified; S80.01XA Contusion of right knee, initial encounter; X58.XXXA Exposure to other specified factors, initial encounter; Z86.73 Personal history of transient ischemic attack (TIA), and cerebral infarction without residual deficits; Z98.2 Presence of cerebrospinal fluid drainage device; I10 Essential (primary) hypertension; E78.5 Hyperlipidemia, unspecified; Z79.02 Long term (current) use of antithrombotics/antiplatelets; Z87.891 Personal history of nicotine dependence
CPT/HCPCS: 70450; 73590; 99281; 99283

== ENCOUNTER 2017-04-01 18:18 | Emergency (ER) | payer OTHER ==
[~2017-04-01] VITALS: Ht 152.4 cm; Wt 47.6 kg
[2017-04-01 21:40] VITALS: BP 128/90
== END 2017-04-01 21:52 | disposition home or self-care (01) ==
LOC: EME 18:18
PROC: 0CQ0XZZ Repair Upper Lip, External Approach (ICD-10-PCS; principal; 2017-04-01)
DX: S01.511A Laceration without foreign body of lip, initial encounter (principal); W18.30XA Fall on same level, unspecified, initial encounter; Y93.G1 Activity, food preparation and clean up; Y92.000 Kitchen of unspecified non-institutional (private) residence as the place of occurrence of the external cause; I10 Essential (primary) hypertension; E78.5 Hyperlipidemia, unspecified; G40.909 Epilepsy, unspecified, not intractable, without status epilepticus; F32.9 Major depressive disorder, single episode, unspecified; K21.9 Gastro-esophageal reflux disease without esophagitis; F41.9 Anxiety disorder, unspecified; Z86.73 Personal history of transient ischemic attack (TIA), and cerebral infarction without residual deficits; Z98.2 Presence of cerebrospinal fluid drainage device; Z87.891 Personal history of nicotine dependence
CPT/HCPCS: 70450; 72125; 99281; 99284

== ENCOUNTER 2017-04-22 18:50 | Emergency (ER) | payer OTHER ==
[~2017-04-22] VITALS: Ht 152.4 cm; Wt 46.3 kg
[2017-04-22 19:41] LABS: HEMATOCRIT 38.3 % (36.0-46.0); MCH 27.8 PG (29.0-34.0); MCHC 31.3 G/DL (30.0-36.0); MCV 88.7 FL (83-99); MEAN PLAT.VOLUME 10.5 uM^3 (9.5-12.4); PLATELET COUNT 268 K/uL (156-360); RBC DIS.WIDTH-CV 14.6 % (11.8-14.6); RBC DIS.WIDTH-SD 46.9 % (39-53); RED BLOOD COUNT 4.32 M/uL (3.80-5.20); WHITE BLOOD COUNT 4.7 K/uL (4.1-10.2)
[2017-04-22 19:54] LABS: CHLORIDE 112 mEq/L (99-109); POTASSIUM 4.3 mEq/L (3.7-5.4); SODIUM 143 mEq/L (136-147)
[2017-04-22 19:55] LABS: GLUCOSE 95 mg/dL (70-99)
[2017-04-22 19:57] LABS: ANION GAP 7 MEQ/L (2-14)
[2017-04-22 19:59] LABS: GFR ESTIMATE (CALCULATED) > 59 mL/min/
[2017-04-22 20:00] LABS: UREA NITROGEN (BUN) 14 mg/dL (9-23)
[2017-04-22 20:59] LABS: TROP-I INTERPRETATION NEGATIVE; TROPONIN-I < 0.01 ng/mL (0.0-0.30)
[2017-04-22 23:35] LABS: ADD MIUA? YES; BILIRUBIN NEGATIVE; BLOOD NEGATIVE; COLOR STRAW ((YELLOW)); GLUCOSE (STRIP) NEGATIVE; KETONES NEGATIVE; LEUKOCYTES TRACE; NITRITE NEGATIVE; PROTEIN (STRIP) NEGATIVE; SPECIFIC GRAVITY 1.011 (1.000-1.030); UROBILINOGEN 0.2 MG/DL (0.2-1.0)
[2017-04-22 23:38] LABS: BACTERIA RARE /HPF; EPITHELIAL CELLS RARE /HPF; MUCUS NONE SEEN /LPF; RED BLOOD CELLS 0-5 /HPF (0-5); WHITE BLOOD CELLS 0-5 /HPF (0-5)
[2017-04-23 01:35] VITALS: BP 101/62
== END 2017-04-23 01:37 | disposition home or self-care (01) ==
LOC: EME 18:50
PROVIDERS: Physician Assistant
DX: R51 Headache (principal); S22.31XA Fracture of one rib, right side, initial encounter for closed fracture; W19.XXXA Unspecified fall, initial encounter; R53.1 Weakness; I69.354 Hemiplegia and hemiparesis following cerebral infarction affecting left non-dominant side; Z98.2 Presence of cerebrospinal fluid drainage device; I10 Essential (primary) hypertension; E78.5 Hyperlipidemia, unspecified; Z79.02 Long term (current) use of antithrombotics/antiplatelets; Z87.891 Personal history of nicotine dependence
CPT/HCPCS: 70450; 71020; 80048; 81003; 84484; 85027; 93005; 99281; 99284; J1885; J7030

== ENCOUNTER 2017-06-22 21:16 | Emergency (ER) | payer OTHER ==
[~2017-06-22] VITALS: Ht 152.4 cm; Wt 47.9 kg
[2017-06-22 21:43] LABS: BASOPHIL COUNT 0.1 K/uL (0-0.1); EOSINOPHIL (%) 2.7 % (0-5); EOSINOPHIL COUNT 0.2 K/uL (0-0.3); HEMATOCRIT 38.6 % (36.0-46.0); IMMATURE GRANULOCYTE (%) 0.2 % (0.0-0.7); INSTRUMENT ABS NEUTROPHIL CT 3.3 K/uL; LYMPHOCYTE COUNT 1.5 K/uL (1.0-2.8); MCH 29.2 PG (29.0-34.0); MCHC 32.6 G/DL (30.0-36.0); MCV 89.4 FL (83-99); MEAN PLAT.VOLUME 10.3 uM^3 (9.5-12.4); MONOCYTE (%) 11.9 % (3-12); MONOCYTE COUNT 0.7 K/uL (0-0.8); NEUTROPHIL (%) 57.4 % (45-76); NEUTROPHIL COUNT 3.3 K/uL (1.8-6.4); PLATELET COUNT 275 K/uL (156-360); RBC DIS.WIDTH-CV 15.4 % (11.8-14.6); RBC DIS.WIDTH-SD 50.4 % (39-53); RED BLOOD COUNT 4.32 M/uL (3.80-5.20); WHITE BLOOD COUNT 5.7 K/uL (4.1-10.2)
[2017-06-22 21:56] LABS: CHLORIDE 107 mEq/L (99-109); SODIUM 140 mEq/L (136-147)
[2017-06-22 21:58] LABS: GLUCOSE 78 mg/dL (70-99)
[2017-06-22 21:59] LABS: ANION GAP 7 MEQ/L (2-14)
[2017-06-22 22:00] LABS: TOTAL BILIRUBIN 0.3 mg/dL (0.0-1.0)
[2017-06-22 22:02] LABS: ALKALINE PHOSPHATASE 98 IU/L (3-129); GFR ESTIMATE (CALCULATED) > 59 mL/min/
[2017-06-22 22:03] LABS: UREA NITROGEN (BUN) 20 mg/dL (9-23)
[2017-06-22 22:05] LABS: LIPASE 38 U/L (1.0-51.0)
[2017-06-22] MEDS ORDERED: HYDROCODON-ACE1 EAC8 PO (23:06)
[2017-06-22 23:51] VITALS: BP 115/82
== END 2017-06-22 23:53 | disposition home or self-care (01) ==
LOC: EME → EDBD 21:16 → EME 21:16
PROVIDERS: Emergency Medicine
DX: S22.42XA Multiple fractures of ribs, left side, initial encounter for closed fracture (principal); S60.222A Contusion of left hand, initial encounter; K21.9 Gastro-esophageal reflux disease without esophagitis; I10 Essential (primary) hypertension; E78.5 Hyperlipidemia, unspecified; I69.354 Hemiplegia and hemiparesis following cerebral infarction affecting left non-dominant side; F32.9 Major depressive disorder, single episode, unspecified; F43.10 Post-traumatic stress disorder, unspecified; W18.30XA Fall on same level, unspecified, initial encounter; Z79.02 Long term (current) use of antithrombotics/antiplatelets; Z87.891 Personal history of nicotine dependence; Z90.49 Acquired absence of other specified parts of digestive tract; Z91.041 Radiographic dye allergy status
CPT/HCPCS: 70450; 71260; 72125; 73130; 74177; 80053; 83690; 85025; 99281; 99285; J3010; J7030

== ENCOUNTER 2017-07-17 16:09 | Emergency (ER) | payer OTHER ==
[~2017-07-17] VITALS: Ht 152.4 cm; Wt 45.4 kg
[~2017-07-17 16:09] MED LIST changes: +HYDROCODON-ACE1 EAC8 PO
[2017-07-17 17:16] LABS: BASOPHIL COUNT 0.1 K/uL (0-0.1); EOSINOPHIL (%) 1.1 % (0-5); EOSINOPHIL COUNT 0.1 K/uL (0-0.3); HEMATOCRIT 41.2 % (36.0-46.0); HEMOGLOBIN 13.6 G/DL (11.9-15.5); IMMATURE GRANULOCYTE (%) 0.2 % (0.0-0.7); LYMPHOCYTE (%) 20.7 % (15-42); LYMPHOCYTE COUNT 1.3 K/uL (1.0-2.8); MCH 29.5 PG (29.0-34.0); MCV 89.4 FL (83-99); MONOCYTE (%) 8.5 % (3-12); MONOCYTE COUNT 0.5 K/uL (0-0.8); NEUTROPHIL (%) 68.5 % (45-76); NEUTROPHIL COUNT 4.2 K/uL (1.8-6.4); PLATELET COUNT 280 K/uL (156-360); RBC DIS.WIDTH-CV 14.9 % (11.8-14.6); RBC DIS.WIDTH-SD 48.9 % (39-53); RED BLOOD COUNT 4.61 M/uL (3.80-5.20); WHITE BLOOD COUNT 6.1 K/uL (4.1-10.2)
[2017-07-17 17:24] LABS: ALBUMIN 4.4 g/dL (3.2-4.8); CHLORIDE 103 mEq/L (99-109); POTASSIUM 4.6 mEq/L (3.7-5.4); SODIUM 137 mEq/L (136-147)
[2017-07-17 17:26] LABS: GLUCOSE 102 mg/dL (70-99); TOTAL PROTEIN 7.7 g/dL (6.4-8.3)
[2017-07-17 17:28] LABS: TOTAL BILIRUBIN 0.3 mg/dL (0.0-1.0)
[2017-07-17 17:30] LABS: ALKALINE PHOSPHATASE 103 IU/L (3-129); CREATININE 0.8 mg/dL (0.6-1.3); GFR ESTIMATE (CALCULATED) > 59 mL/min/
[2017-07-17 17:31] LABS: UREA NITROGEN (BUN) 19 mg/dL (9-23)
[2017-07-17 17:32] LABS: AST (GOT) 9 IU/L (2-34); DIRECT BILIRUBIN 0.1 mg/dL (0.0-0.3)
[2017-07-17 17:33] LABS: ALT (GPT) 11 IU/L (3-49)
[2017-07-17 19:01] LABS: APPEARANCE CLEAR ((CLEAR)); BILIRUBIN NEGATIVE; BLOOD SMALL; COLOR YELLOW ((YELLOW)); GLUCOSE (STRIP) NEGATIVE; KETONES NEGATIVE; LEUKOCYTES NEGATIVE; NITRITE NEGATIVE; PROTEIN (STRIP) NEGATIVE; SPECIFIC GRAVITY 1.011 (1.000-1.030); UROBILINOGEN 0.2 MG/DL (0.2-1.0)
[2017-07-17 19:03] LABS: BACTERIA NONE SEEN /HPF; EPITHELIAL CELLS RARE /HPF; MUCUS TRACE /LPF; RED BLOOD CELLS 0-5 /HPF (0-5); WHITE BLOOD CELLS 0-5 /HPF (0-5)
[2017-07-17 20:58] VITALS: BP 134/95
== END 2017-07-17 21:04 | disposition home or self-care (01) ==
LOC: EME 16:09
PROVIDERS: Physician Assistant
DX: I69.954 Hemiplegia and hemiparesis following unspecified cerebrovascular disease affecting left non-dominant side (principal); R29.6 Repeated falls; R51 Headache; R05 Cough; R09.89 Other specified symptoms and signs involving the circulatory and respiratory systems; Z98.2 Presence of cerebrospinal fluid drainage device; I10 Essential (primary) hypertension; E78.5 Hyperlipidemia, unspecified; Z79.02 Long term (current) use of antithrombotics/antiplatelets; Z87.891 Personal history of nicotine dependence
CPT/HCPCS: 71045; 71250; 80048; 80076; 81003; 83605; 85025; 87040; 87502; 93005; 99281; 99285; J7030

== ENCOUNTER 2017-07-24 13:45 | Emergency (ER) | payer OTHER ==
[~2017-07-24] VITALS: Ht 152.4 cm; Wt 46.4 kg
[2017-07-24 16:30] LABS: BASOPHIL (%) 1.2 % (0-1); BASOPHIL COUNT 0.1 K/uL (0-0.1); EOSINOPHIL (%) 4.2 % (0-5); EOSINOPHIL COUNT 0.2 K/uL (0-0.3); HEMATOCRIT 34.4 % (36.0-46.0); HEMOGLOBIN 11.2 G/DL (11.9-15.5); IMMATURE GRANULOCYTE (%) 0.2 % (0.0-0.7); LYMPHOCYTE (%) 41.3 % (15-42); LYMPHOCYTE COUNT 1.7 K/uL (1.0-2.8); MCH 30.1 PG (29.0-34.0); MCHC 32.6 G/DL (30.0-36.0); MCV 92.5 FL (83-99); MONOCYTE (%) 11.4 % (3-12); MONOCYTE COUNT 0.5 K/uL (0-0.8); NEUTROPHIL (%) 41.7 % (45-76); NEUTROPHIL COUNT 1.7 K/uL (1.8-6.4); PLATELET COUNT 229 K/uL (156-360); RBC DIS.WIDTH-CV 15.6 % (11.8-14.6); RBC DIS.WIDTH-SD 53.1 % (39-53); RED BLOOD COUNT 3.72 M/uL (3.80-5.20)
[2017-07-24 16:36] LABS: CHLORIDE 111 mEq/L (99-109); POTASSIUM 3.7 mEq/L (3.7-5.4); SODIUM 142 mEq/L (136-147)
[2017-07-24 16:37] LABS: MAGNESIUM 2.1 mg/dL (1.3-2.7)
[2017-07-24 16:39] LABS: GLUCOSE 77 mg/dL (70-99)
[2017-07-24 16:42] LABS: ALKALINE PHOSPHATASE 88 IU/L (3-129); CREATININE 0.8 mg/dL (0.6-1.3); GFR ESTIMATE (CALCULATED) > 59 mL/min/
[2017-07-24 16:43] LABS: APPEARANCE CLEAR ((CLEAR)); BILIRUBIN NEGATIVE; BLOOD NEGATIVE; COLOR YELLOW ((YELLOW)); GLUCOSE (STRIP) NEGATIVE; KETONES NEGATIVE; LEUKOCYTES NEGATIVE; NITRITE NEGATIVE; PROTEIN (STRIP) NEGATIVE; SPECIFIC GRAVITY 1.008 (1.000-1.030); UROBILINOGEN 0.2 MG/DL (0.2-1.0)
[2017-07-24 16:43] LABS: UREA NITROGEN (BUN) 13 mg/dL (9-23)
[2017-07-24 16:44] LABS: AST (GOT) 7 IU/L (2-34)
[2017-07-24 16:45] LABS: ALT (GPT) 7 IU/L (3-49)
[2017-07-24 16:46] LABS: TOTAL BILIRUBIN 0.2 mg/dL (0.0-1.0); TOTAL PROTEIN 6.5 g/dL (6.4-8.3)
[2017-07-24 19:59] VITALS: BP 118/92
== END 2017-07-24 20:00 | disposition home or self-care (01) ==
LOC: EME 13:45
PROVIDERS: Emergency Medicine
DX: G35 Multiple sclerosis (principal); Z86.73 Personal history of transient ischemic attack (TIA), and cerebral infarction without residual deficits; Z98.2 Presence of cerebrospinal fluid drainage device; I10 Essential (primary) hypertension; E78.5 Hyperlipidemia, unspecified; Z79.02 Long term (current) use of antithrombotics/antiplatelets; Z87.891 Personal history of nicotine dependence
CPT/HCPCS: 70450; 80053; 81003; 83735; 85025; 99281; 99284

== ENCOUNTER 2017-08-01 10:43 | Emergency (ER) | payer OTHER ==
[~2017-08-01] VITALS: Ht 162.6 cm; Wt 46.9 kg
[2017-08-01] MEDS ORDERED: PERCOCET 5/31 TABLET PO (11:54)
[2017-08-01] MEDS ORDERED: PERCOCET 10/1 TABLET PO (12:18)
[2017-08-01 13:45] VITALS: BP 123/87
== END 2017-08-01 13:48 | disposition home or self-care (01) ==
LOC: EME 10:43
DX: S22.089A Unspecified fracture of T11-T12 vertebra, initial encounter for closed fracture (principal); S20.229A Contusion of unspecified back wall of thorax, initial encounter; M54.2 Cervicalgia; S09.90XA Unspecified injury of head, initial encounter; W01.0XXA Fall on same level from slipping, tripping and stumbling without subsequent striking against object, initial encounter; I10 Essential (primary) hypertension; E78.5 Hyperlipidemia, unspecified; K21.9 Gastro-esophageal reflux disease without esophagitis; R56.9 Unspecified convulsions; G35 Multiple sclerosis; G43.909 Migraine, unspecified, not intractable, without status migrainosus; F32.9 Major depressive disorder, single episode, unspecified; F41.9 Anxiety disorder, unspecified; Z86.73 Personal history of transient ischemic attack (TIA), and cerebral infarction without residual deficits; Z98.2 Presence of cerebrospinal fluid drainage device; Z87.891 Personal history of nicotine dependence; Z91.041 Radiographic dye allergy status
CPT/HCPCS: 70450; 72070; 72100; 72125; 99281; 99283; J3010

== ENCOUNTER → 2017-10-11 | Outpatient (CLI) | payer OTHER ==
[2017-10-11 12:00] LABS: CSF TUBE NUMBER TUBE #3
[2017-10-11 12:01] LABS: APPEARANCE CLOUDY/BLOODY; RED CELL COUNT 71500 /MM^3 (0-1)
[2017-10-11 12:02] LABS: WHITE CELL COUNT 150 /MM^3 (0-5)
[2017-10-11 12:04] LABS: CSF PROTEIN 420 mg/dL (15-45); GLUCOSE, CSF 54 mg/dL (40-80)
[2017-10-11 12:26] LABS: CSF EOSINOPHILS 0 % (0-25); MONONUCLEAR WBC'S 37 % (50-90); POLYNUCLEAR WBC'S 63 % (0-3)
[2017-10-11 12:29] LABS: APPEARANCE (RECHECK) CLOUDY/BLOODY; CSF TUBE NUMBER (RECHECK) TUBE #1; RED CELL COUNT (RECHECK) 52000 /MM^3 (0-1)
[2017-10-16 11:53] LABS: Albumin, CSF 247.0 (H) mg/dL; IgG Index, CSF 0.88 (H) index; Synthesis Rate IgG, CSF 79.8 (H) mg/24hr
[2017-10-16 11:54] LABS: IgG, CSF 32.4 (H) mg/dL
[2017-10-16 11:55] LABS: Albumin, Serum 4.6 g/dL
== END | disposition home or self-care (01) ==
LOC: RAD 09:08
PROVIDERS: Psychiatry & Neurology Neurology
PROC: 009U3ZZ Drainage of Spinal Canal, Percutaneous Approach (ICD-10-PCS; principal; 2017-10-11)
DX: G35 Multiple sclerosis (principal)
CPT/HCPCS: 62270; 77003; 82945; 83873 90; 83916 90; 84157; 89051

== ENCOUNTER 2018-01-27 13:39 | Emergency (ER) | payer OTHER ==
[~2018-01-27] VITALS: Ht 160 cm; Wt 42.1 kg
[2018-01-27 14:10] LABS: HEMATOCRIT 35.7 % (36.0-46.0); HEMOGLOBIN 12.8 G/DL (11.9-15.5); MCH 32.1 PG (29.0-34.0); MCHC 35.9 G/DL (30.0-36.0); MCV 89.5 FL (83-99); PLATELET COUNT 286 K/uL (156-360); RBC DIS.WIDTH-CV 12.5 % (11.8-14.6); RBC DIS.WIDTH-SD 41.1 % (39-53); RED BLOOD COUNT 3.99 M/uL (3.80-5.20); WHITE BLOOD COUNT 14.4 K/uL (4.1-10.2)
[2018-01-27 14:16] LABS: APPEARANCE CLOUDY ((CLEAR)); BILIRUBIN NEGATIVE; BLOOD SMALL; COLOR YELLOW ((YELLOW)); GLUCOSE (STRIP) NEGATIVE; KETONES NEGATIVE; LEUKOCYTES NEGATIVE; NITRITE NEGATIVE; PROTEIN (STRIP) 30; SPECIFIC GRAVITY 1.026 (1.000-1.030); UROBILINOGEN 0.2 MG/DL (0.2-1.0)
[2018-01-27] MEDS ORDERED: BUSPAR15 MG PO (14:19)
[2018-01-27 14:20] LABS: CHLORIDE 103 mEq/L (99-109); POTASSIUM 3.6 mEq/L (3.7-5.4); SODIUM 136 mEq/L (136-147)
[2018-01-27] MEDS ORDERED: WELLBUTRIN XL150 MG PO (14:20)
[2018-01-27 14:21] LABS: GLUCOSE 129 mg/dL (70-99)
[2018-01-27] MEDS ORDERED: SEROQUEL50 MG PO (14:21)
[2018-01-27] MEDS ORDERED: ZOLOFT50 MG PO (14:22)
[2018-01-27] MEDS ORDERED: XANAX0.5 MG PO (14:22)
[2018-01-27] MEDS ORDERED: CYMBALTA60 MG PO (14:23)
[2018-01-27] MEDS ORDERED: PRAVACHOL40 MG PO (14:23)
[2018-01-27 14:25] LABS: CREATININE 0.8 mg/dL (0.6-1.3); GFR ESTIMATE (CALCULATED) > 59 mL/min/
[2018-01-27] MEDS ORDERED: LOPRESSOR25 MG PO (14:25)
[2018-01-27] MEDS ORDERED: PAXIL40 MG PO (14:25)
[2018-01-27 14:26] LABS: UREA NITROGEN (BUN) 26 mg/dL (9-23)
[2018-01-27 14:30] LABS: AMORPHOUS URATES CRYSTALS 1+; BACTERIA 2+ /HPF; EPITHELIAL CELLS NONE SEEN /HPF; MUCUS NONE SEEN /LPF; RED BLOOD CELLS 0-5 /HPF (0-5); UCUL ADDED? YES; WHITE BLOOD CELLS 0-5 /HPF (0-5)
[2018-01-27] MEDS ORDERED: KEFLEX500 MG PO (17:09)
[2018-01-27 18:00] VITALS: BP 133/91
== END 2018-01-27 18:00 | disposition home or self-care (01) ==
LOC: EME 13:39
PROVIDERS: Emergency Medicine
DX: N39.0 Urinary tract infection, site not specified (principal); R29.6 Repeated falls; R42 Dizziness and giddiness; Z86.73 Personal history of transient ischemic attack (TIA), and cerebral infarction without residual deficits; Z98.2 Presence of cerebrospinal fluid drainage device; G35 Multiple sclerosis; F32.9 Major depressive disorder, single episode, unspecified; E78.5 Hyperlipidemia, unspecified; I10 Essential (primary) hypertension; G40.909 Epilepsy, unspecified, not intractable, without status epilepticus; K21.9 Gastro-esophageal reflux disease without esophagitis; F41.9 Anxiety disorder, unspecified; Z87.891 Personal history of nicotine dependence
CPT/HCPCS: 70450; 71046; 80048; 81003; 85027; 87086; 99281; 99284; J0696